=== PATIENT | male | born 1955 | race Caucasian/White ===

== ENCOUNTER 2017-06-26 17:00 | Outpatient (RCR) | payer OTHER, SELFPAY ==
--- NOTE | 2017-06-08 18:28 | HP.PTEVAL_ITS ---
Patient's Visit Information DEON MELENDEZ is a 62 year old M referred to Physical Therapy by Cristóbal Andujar with a diagnosis of BURSITIS LEFT AND RIGHT SHOULDER,OA LEFT SHOULDER. Date of Evaluation: 06/08/17 Physical Therapist: Tunde Castaneda PT, - Visit Plan Frequency: 2-3x /Week Duration: 4-6 Weeks Plan: RTC /SCAPULAR STRENGTHENING,POSTURAL EX'S ,POSTERIOR CAPSULAR STRETCHING, UE SCIFIT - Subjective Subjective: This 62 y/o male presents to physical therapy with bursitis bilateral and left shoulder ,and OA right shoulder. Patient noticed pain in shoulder since Nov had injections took pain away then in February had cortisone injection helped pain. Then 2weeks ago had 2nd injection left shoulder.Then recommended PT had x-rays -. Patient has pain located lateral deltoid ,bicep tendon region decribed as ache and weakness .Pain worse with overhead activities ,job demands ,lifting.Patient pain affects sleeping . Denies parathesia/tingling.Patient affects quality of life and job demands .Pain better with rest worse with activity and lifting. VOCATION: [employer] SOCAIL: . HOBBIES:running - Pain Bilateral Shoulder Pain Intensity (Out of 10): 7 Pain Intensity Range: 10 - Objective POSTURE: mild foward posture ,rounded shoulders. NEURO: denies parathesia/ tingling ,reflexes C5-6-7. PALPATION: unremarkable. AROM: flexion 160 degrees, abd 160 degrees ER 90 degrees ,IR 80 degrees. MMT: RTC 4/5 ,DELTOID 4-/5 mild pain with lateral deltoid,MT 3+/5,LT 3/5. BICEPS 4/5,TRICEPS 4/5. SCAPULAR HUMERAL FUNCTION: 1:1. CAPSULAR RESTRICTION: WFL - Special Tests R Shoulder External Rotation Lag Test - RC Tear: Negative R Shoulder Supine Impingement Test - RC Tear: Negative R Shoulder Lift Off Test - Subscapular Tear: Negative R Shoulder Empty Can - SS: Negative R Shoulder Neer - Impingement: Positive R Shoulder Quan Olman - Impingement: Positive R Shoulder Yeargasons - SLAP: Negative R Shoulder Speeds Test - Labrum/Biceps: Negative L Shoulder External Rotation Lag Test - RC Tear: Negative L Shoulder Lift Off Test - Subscapular Tear: Negative L Shoulder Empty Can - SS: Negative L Shoulder Neer - Impingement: Positive L Shoulder Quan Olman - Impingement: Positive - Goals Goal 1:: Independant with HEP Goal Time Frame: 4-6 Weeks Goal 2:: Independant with posture for ADL'S Goal Time Frame: 4-6 Weeks Goal 3:: Patient to decrease shoulder pain by 70% or greate to improve function with job demands and ADL'S Goal Time Frame: 4-6 Weeks Goal 4:: Patient be ble to perform ADL'S and overhead activities with job demands with min limitions Goal Time Frame: 4-6 Weeks Goal 5:: Patient to have no pain with deltoid strengtth to 4/5 and scapular 4-/ 5 to improve function. - Rehabilitation Potential Physical Therapy Diagnosis: This patient appears to have bilateral shoulder impingemnt bicep tendon/RTC with pain with job demnads and overhead activities Rehabilitation Potential: Good - Anticipated Interventions Patient/Client Instruction: Educate patient on: Condition, Plan of Care For the Purpose of:: To decrease pain, To increase ROM, To improve muscle performance and motor function, To improve ability to perform ADL's, To increase tolerance to activity/condition/position, To improve performance and independence with ADL's, To improve ability of physical actions for home/ community/work/leisure, To improve health of tissue, To decrease soft tissue restriction, To increase flexibility/ROM, To reduce risk of recurrence, To improve ability to perform tasks related to life management Therapeutic Exercise to Include: Strength training, Postural training, Flexibilty training, Scapular Strength/Stabilization Comment: RTC For the Purpose of:: To decrease pain, To increase ROM, To improve muscle performance and motor function, To increase tolerance to activity/condition/ position, To improve ability of physical actions for home/community/work/leisure , To improve health of tissue, To decrease soft tissue restriction, To increase flexibility/ROM, To reduce risk of recurrence, To improve ability to perform tasks related to life management IF ES: Yes Cryotherapy (ice pack, ice massage): Yes Thermo therapy (hot pack): Yes Ultrasound (thermal/non thermal): Yes For the Purpose of:: To decrease pain, To increase ROM, To improve nutrient delivery to tissue, To increase oxygenation perfusion, To improve health of tissue, To decrease soft tissue restriction Thank you for the opportunity to evaluate your patient. For Medicare and Medicare HMO plans, please review the plan of care and approve it. It will need to be FAXED BACK to us at [phone] for Medicare purposes. Please let me know if there are questions or concerns regarding this plan of care. Physician Signature: Date:
--- NOTE | 2017-10-06 17:01 | HP.PTDCNRP_ITS ---
HP - Discharge Summary (1) - Patient Information DEON MELENDEZ was seen in my office for initial evaluation on 06/08/17. The following Plan of Care was established for this patient: Initial Frequency: 2-3x /Week Initial Duration: 4-6 Weeks - Anticipated Interventions Patient/Client Instruction: Educate patient on: Condition, Plan of Care For the Purpose of:: To decrease pain, To increase ROM, To improve muscle performance and motor function, To improve ability to perform ADL's, To increase tolerance to activity/condition/position, To improve performance and independence with ADL's, To improve ability of physical actions for home/ community/work/leisure, To improve health of tissue, To decrease soft tissue restriction, To increase flexibility/ROM, To reduce risk of recurrence, To improve ability to perform tasks related to life management Therapeutic Exercise to Include: Strength training, Postural training, Flexibilty training, Scapular Strength/Stabilization For the Purpose of:: To decrease pain, To increase ROM, To improve muscle performance and motor function, To increase tolerance to activity/condition/ position, To improve ability of physical actions for home/community/work/leisure , To improve health of tissue, To decrease soft tissue restriction, To increase flexibility/ROM, To reduce risk of recurrence, To improve ability to perform tasks related to life management IF ES: Yes Cryotherapy (ice pack, ice massage): Yes Thermo therapy (hot pack): Yes Ultrasound (thermal/non thermal): Yes For the Purpose of:: To decrease pain, To increase ROM, To improve nutrient delivery to tissue, To increase oxygenation perfusion, To improve health of tissue, To decrease soft tissue restriction This patient was last seen in our office 06/26/17. Pertinent comments regarding their Physical therapy will appear below: Patient seen for PT for shoulder bursitus for PT intervention with modalties and attempred RTC and scap strengthening. Patient continued to have pain thus d/ c At this point I will be discontinuing this patient from physical therapy. I would be happy to see this patient again in the future if found appropriate by the physician. Thank you! Tunde Castaneda, PT,
== END 2017-06-26 19:00 | disposition home or self-care (01) ==
LOC: PT 17:00
PROVIDERS: Family Provider Family Medicine; PCP Family Medicine; Visit Provider Orthopaedic Surgery
DX: M75.51 Bursitis of right shoulder (principal); M75.52 Bursitis of left shoulder; M19.011 Primary osteoarthritis, right shoulder
CPT/HCPCS: 97014; 97035; 97110; 97162; G0283

== ENCOUNTER → 2018-03-20 16:49 | Outpatient (CLI) | payer OTHER, SELFPAY ==
[2018-03-20 17:15] LABS: Absolute Lymphocyte Count 2.52 X10^3/ul (0.83-4.51); Absolute Neutrophil Count 5.4 X10^3/uL (2.0-7.7); Basophil# 0.03 X10^3/uL; Basophil% 0.3 % (0-1); Eosinophil# 0.27 X10^3/uL; Hematocrit 44.7 % (40-54); Hemoglobin 14.6 g/dl (13.0-16.5); Lymphocyte # 2.52 X10^3/ul (4.0); Lymphocyte % 27.8 % (19-41); Mean Corp Hgb Conc 32.7 g/gl (32-36); Mean Corpuscular Hgb 28.5 pg (27.0-32.0); Mean Corpuscular Volume 87.1 fL (80-94); Monocyte% 8.8 % (0-10); Neutrophil # 5.42 X10^3/uL (2.7-7.7); Neutrophil % 59.9 % (47-70); POSITIVE COUNT NO; POSITIVE DIFFERENTIAL NO; POSITIVE MORPHOLOGY NO; Platelet Count 171 K/mm3 (150-450); RBC Distribution Width CV 14.4 % (11.6-14.6); RBC Distribution Width SD 45.7 fl (35.1-43.9); Red Blood Count 5.13 M/mm3 (4.6-6.2); White Blood Count 9.1 K/mm3 (4.4-11.0)
[2018-03-20 17:48] LABS: AST(SGOT) 41 U/L (15-37); Alanine Aminotransfer ALT/SGPT 54 U/L (16-61); Albumin, Serum 3.8 g/dL (3.2-5.0); Alkaline Phosphatase 71 U/L (45-117); Anion Gap 6 (5-15); BUN 30 mg/dL (7-18); Calcium,Total 8.8 mg/dL (8.5-10.1); Chloride 103 mmol/L (98-107); Cholesterol 195 mg/dL (200); EST Glomerular Filtration Rate 65 mL/min (>60); Est Glom Filt Rate - Afr Amer 79 mL/min (>60); Globulin 3.9 g/dL (2.2-4.2); Glucose 94 mg/dL (74-106); High Density Lipoprotein 43 mg/dL; PSA,Total - Annual Screen 2.94 ng/mL (0.00-4.00); Protein, Total 7.7 g/dL (6.4-8.2); Sodium Level 137 mmol/L (136-145); T4 Free Direct 1.05 ng/dL (0.76-1.46); Thyroid Stim Hormone (TSH) 4.79 uIU/mL (0.358-3.74); Triglycerides 185 mg/dL; Very Low Density Lipoprotein 37 mg/dL (5-40)
--- OUTSIDE RECORDS SUMMARY | 2018-05-22 23:02 | XMS RPT_ITS ---
:1955 Author Organization [facility] Care Team Providers Name Role Phone Cristóbal Andujar Attending Unavailable Rony Segura Primary Care Unavailable Cristóbal Andujar Attending Unavailable Cristóbal Andujar Referring Unavailable Rony Segura Primary Care Unavailable Rony Segura Primary Care Unavailable Kathrine Pineda Attending Unavailable Cristóbal Andujar Consulting Unavailable Rony Segura Attending Unavailable Rony Segura Primary Care Unavailable Rony Segura Referring Unavailable Cristóbal Andujar Consulting Unavailable PROBLEMS PROBLEMS DATE TYPE CONDITION / CODE ATTENDING STATUS SOURCE 09/21/2017 Unknown Z01.810 - Encounter Kathrine Pineda Active [facility] examination / Repository Z01.810(ICD-10) 10/10/2017 Unknown M75.51 - Bursitis of Cristóbal Andujar Active [facility] right shoulder / [facility] M75.51(ICD-10) Hospital Repository PROCEDURES PROCEDURES No Procedure Records FoundRESULTS RESULTS CBC W/DIFF, AUTOMATED Collected: 03/20/2018 Status: F Source: [place] 4:54 PM [facility] REPOSITORY TYPE CODE TESTS RESULT OUT OF RANGE REFERENCE UNITS LAB L100.1000 4.4-11.0 K/mm3 Normal WBC 9.1 LAB L100.1200 4.6-6.2 M/mm3 Normal RBC 5.13 LAB L100.1300 13.0-16.5 g/dl Normal HGB 14.6 LAB L100.1400 40-54 % Normal HCT 44.7 LAB L100.1500 80-94 fL Normal MCV 87.1 LAB L100.1600 27.0-32.0 pg Normal MCH 28.5 LAB L100.1700 32-36 g/gl Normal MCHC 32.7 LAB L100.1810 11.6-14.6 % Normal RDW CV 14.4 LAB L100.1820 35.1-43.9 fl High RDW SD 45.7 LAB L100.1900 150-450 K/mm3 Normal PLT 171 LAB L100.2000 6.2-12.0 fl Normal MPV 11.0 LAB L100.2100 47-70 % Normal NEUT% 59.9 LAB L100.2200 19-41 % Normal LY% 27.8 LAB L100.2300 0-10 % Normal MONO% 8.8 LAB L100.2400 0-5 % Normal EO% 3.0 LAB L100.2500 0-1 % Normal BASO% 0.3 LAB L100.2550 0.0-0.9 % Normal IM GRAN % 0.200 Result Comment: IG% - Immature Granulocytes (promyelocytes, myelocytes and metamyelocytes) > 1% indicates that a LEFT SHIFT is Present. LAB L100.2620 2.0-7.7 X10 3/uL Normal Absolute Neut 5.4 LAB L100.2720 0.83-4.51 X10 3/ul Normal Absolute Lymph 2.52 Performed By: #### L100.0100 #### [facility] [address], [address] COMPREHENSIVE METABOLIC Collected: 03/20/2018 Status: F Source: [place] 4:54 PM [facility] REPOSITORY TYPE CODE TESTS RESULT OUT OF RANGE REFERENCE UNITS LAB L501.0100 74-106 mg/dL Normal GLU 94 Result Comment: Please note revised GLUCOSE reference range effective 2017. LAB L501.1000 7-18 mg/dL High BUN 30 LAB L501.1100 0.70-1.30 mg/dL Normal CREAT,SERUM 1.20 Result Comment: The validity of the calculated GFR AND GFRAA in patients over 70 years has not been determined. Clinical correlation is essential. LAB L501.1110 >60 mL/min Normal EST GFR 65 Result Comment: Non- GFR Calc LAB L501.1115 >60 mL/min Normal EST GFR - AA 79 Result Comment: GFR Calc LAB L501.1300 10-20 RATIO High BUN/CRE 25.0 LAB L501.1500 6.4-8.2 g/dL T Normal PROT 7.7 LAB L501.1800 3.2-5.0 g/dL Normal ALB 3.8 LAB L501.1950 2.2-4.2 g/dL Normal GLOB 3.9 LAB L501.2000 0.9-2.4 RATIO Normal A/G 1.0 LAB L501.2200 8.5-10.1 mg/dL CA Normal 8.8 LAB L501.4100 15-37 U/L High AST 41 LAB L501.4305 45-117 U/L Normal ALK P 71 LAB L501.4405 16-61 U/L Normal ALT 54 LAB L501.4600 0.20-1.00 mg/dL T Normal BILI 0.30 LAB L501.5300 136-145 mmol/L NA Normal 137 LAB L501.5600 3.5-5.1 mmol/L K Normal 4.0 LAB L501.5900 98-107 mmol/L CL Normal 103 LAB L501.6100 21.0-32.0 mmol/L Normal CO2 28.0 LAB L501.6200 5-15 Normal GAP 6 Performed By: #### L500.4050, L500.4100, L501.9520, L501.9910, L506.0400 #### [facility] [address] [place], [address] LIPID PROFILE Collected: 03/20/2018 Status: F Source: [place] 4:54 PM [facility] REPOSITORY TYPE CODE TESTS RESULT OUT OF RANGE REFERENCE UNITS LAB L501.4900 200 mg/dL Normal CHOL 195 Result Comment: <200 mg/dL Desirable 200-240 mg/dL Borderline >240 mg/dL High Risk LAB L501.5000 mg/dL Normal TRIG 185 Result Comment: The drugs N-Acetylcysteine and Metamizole may falsely depress this assay. Serum Triglycerides Reference Interval Normal <150 mg/dL Borderline high 150 - 199 mg/dL High 200 - 499 mg/dL Very High > or = 500 mg/dL LAB L501.6400 mg/dL Normal HDL 43 Result Comment: The drugs N-Acetylcysteine and Metamizole may falsely depress this assay. Reference Range HDL <40 mg/dL Low HDL Cholesterol HDL >or= 60 mg/dL High HDL Cholesterol LAB L501.6500 0-130 mg/dL Normal LDL 115 LAB L501.6600 5-40 mg/dL Normal VLDL 37 Performed By: #### L500.4050, L500.4100, L501.9520, L501.9910, L506.0400 #### [facility] [address] [facility]. [place], [place], [address] THYROID STIM HORMONE Collected: 03/20/2018 Status: F Source: [place] ([place]) 4:54 PM [facility] REPOSITORY TYPE CODE TESTS RESULT OUT OF RANGE REFERENCE UNITS LAB L501.9520 0.358-3.74 uIU/mL High TSH 4.79 Performed By: #### L500.4050, L500.4100, L501.9520, L501.9910, L506.0400 #### [facility] [address] [facility] [place], [address] PSA,TOTAL - ANNUAL Collected: 03/20/2018 Status: F Source: [place] SCREEN 4:54 PM [facility] REPOSITORY TYPE CODE TESTS RESULT OUT OF RANGE REFERENCE UNITS LAB L501.9910 0.00-4.00 ng/mL Normal PSA,TOT 2.94 SCREEN Result Comment: This test was performed using the TPSA assay method for the opvizor chemistry system. Values obtained with different assay methods cannot be used interchangably. When changing PSA assays in the course of monitoring a patient, additional sequential testing should be carried out to confirm baseline values. Performed By: #### L500.4050, L500.4100, L501.9520, L501.9910, L506.0400 #### [facility] [address] [place], [address] T4 FREE DIRECT Collected: 03/20/2018 Status: F Source: [place] 4:54 PM [facility] REPOSITORY TYPE CODE TESTS RESULT OUT OF RANGE REFERENCE UNITS LAB L506.0400 0.76-1.46 ng/dL Normal T4 FREE 1.05 DIRECT Performed By: #### L500.4050, L500.4100, L501.9520, L501.9910, L506.0400 #### [facility] [address] [place], [address] INITAL EVALUATION (1) Observed: 06/08/2017 Status: F Source: [place] - PT 6:44 PM [facility] REPOSITORY [facility] [address] [place] [address]. [address] [place] [address] Fax REHABILITATION SERVICES INITIAL EVALUATION MR#: [id number] Acct: [id number] Name: DEON MELENDEZ Rep #: [id number] : 1955 62 From: Tunde Castaneda PT, Cert. MDT, OCS Referring Dr.: Cristóbal Andujar MD Status: REG R Insurance: [facility] SELF PAY INSURANCE Patient's Visit Information DEON MELENDEZ is a 62 year old M referred to Physical Therapy by Cristóbal Andujar with a diagnosis of BURSITIS LEFT AND RIGHT SHOULDER,OA LEFT SHOULDER. Date of Evaluation: 06/08/17 Physical Therapist: Tunde Castaneda PT, - Visit Plan Frequency: 2-3x /Week Duration: 4-6 Weeks Plan: RTC /SCAPULAR STRENGTHENING,POSTURAL EX'S ,POSTERIOR CAPSULAR STRETCHING,UE SCIFIT - Subjective Subjective: This 62 y/o male presents to physical therapy with bursitis bilateral and left shoulder ,and OA right shoulder. Patient noticed pain in shoulder since Nov had injections took pain away then in February had cortisone injection helped pain. Then 2weeks ago had 2nd injection left shoulder.Then recommended PT had x-rays -. Patient has pain located lateral deltoid ,bicep tendon region decribed as ache and weakness .Pain worse with overhead activities ,job demands ,lifting.Patient pain affects sleeping . Denies parathesia/tingling.Patient affects quality of life and job demands .Pain better with rest worse with activity and lifting. VOCATION: [employer] SOCAIL: . HOBBIES:running - Pain Bilateral Shoulder Pain Intensity (Out of 10): 7 Pain Intensity Range: 10 - Objective POSTURE: mild foward posture ,rounded shoulders. NEURO: denies parathesia/tingling ,reflexes C5-6-7. PALPATION: unremarkable. AROM: flexion 160 degrees,abd 160 degrees ER 90 degrees ,IR 80 degrees. MMT: RTC 4/5 ,DELTOID 4-/5 mild pain with lateral deltoid,MT 3+/5,LT 3/5. BICEPS 4/5,TRICEPS 4/5. SCAPULAR HUMERAL FUNCTION: 1:1. CAPSULAR RESTRICTION: WFL - Special Tests R Shoulder External Rotation Lag Test - RC Tear: Negative R Shoulder Supine Impingement Test - RC Tear: Negative R Shoulder Lift Off Test - Subscapular Tear: Negative R Shoulder Empty Can - SS: Negative R Shoulder Neer - Impingement: Positive R Shoulder Quan Olman - Impingement: Positive R Shoulder Yeargasons - SLAP: Negative R Shoulder Speeds Test - Labrum/Biceps: Negative L Shoulder External Rotation Lag Test - RC Tear: Negative L Shoulder Lift Off Test - Subscapular Tear: Negative L Shoulder Empty Can - SS: Negative L Shoulder Neer - Impingement: Positive L Shoulder Quan Olman - Impingement: Positive - Goals Goal 1:: Independant with HEP Goal Time Frame: 4-6 Weeks Goal 2:: Independant with posture for ADL'S Goal Time Frame: 4-6 Weeks Goal 3:: Patient to decrease shoulder pain by 70% or greate to improve function with job demands and ADL'S Goal Time Frame: 4-6 Weeks Goal 4:: Patient be ble to perform ADL'S and overhead activities with job demands with min limitions Goal Time Frame: 4-6 Weeks Goal 5:: Patient to have no pain with deltoid strengtth to 4/5 and scapular 4-/5 to improve function. - Rehabilitation Potential Physical Therapy Diagnosis: This patient appears to have bilateral shoulder impingemnt bicep tendon/RTC with pain with job demnads and overhead activities Rehabilitation Potential: Good - Anticipated Interventions Patient/Client Instruction: Educate patient on: Condition, Plan of Care For the Purpose of:: To decrease pain, To increase ROM, To improve muscle performance and motor function, To improve ability to perform ADL's, To increase tolerance to activity/condition/position, To improve performance and independence with ADL's, To improve ability of physical actions for home/community/work/leisure, To improve health of tissue, To decrease soft tissue restriction, To increase flexibility/ROM, To reduce risk of recurrence, To improve ability to perform tasks related to life management Therapeutic Exercise to Include: Strength training, Postural training, Flexibilty training, Scapular Strength/Stabilization Comment: RTC For the Purpose of:: To decrease pain, To increase ROM, To improve muscle performance and motor function, To increase tolerance to activity/condition/position, To improve ability of physical actions for home/community/work/leisure, To improve health of tissue, To decrease soft tissue restriction, To increase flexibility/ROM, To reduce risk of recurrence, To improve ability to perform tasks related to life management IF ES: Yes Cryotherapy (ice pack, ice massage): Yes Thermo therapy (hot pack): Yes Ultrasound (thermal/non thermal): Yes For the Purpose of:: To decrease pain, To increase ROM, To improve nutrient delivery to tissue, To increase oxygenation perfusion, To improve health of tissue, To decrease soft tissue restriction Thank you for the opportunity to evaluate your patient. For Medicare and Medicare HMO plans, please review the plan of care and approve it. It will need to be FAXED BACK to us at [phone] for Medicare purposes. Please let me know if there are questions or concerns regarding this plan of care. Physician Signature: Date: <Electronically signed by Tunde Castaneda PT, Cert. T, OCS> 06/08/17 [id number] CC: Rony Segura DO; Cristóbal Andujar MD JAVED Signed For Medicare only, by signing this I certify the plan of care. Physicians Signature Date ALLERGIES ALLERGIES No Allergies Records FoundENCOUNTERS ENCOUNTERS ADMIT/DISCHARGE ACCOUNT ADMITTING ENCOUNTER LOCATION SOURCE NUMBER CLASS 03/21/2018 [id number] Ambulatory [place] [facility] [facility] ing:LAB.FUTUR Repository E 03/20/2018 [id number] [place] [facility] ing:LAB.FUTUR Repository E 09/21/2017 [id number] Ambulatory [place] [facility] ing:[facility] Repository 06/26/2017/ [id number] Ambulatory [place] [address] [facility] ing:PT Repository PAYERS PAYERS ENCOUNTER GUARANTOR PAYER SUBSCRIBER SOURCE 03/21/2018 DEON العراقي Primary DEON M [place] [id number] [place] Insurance:MEDICAL RYANDOB: [facility] [id number] [address]Tel: (330) Number: Repository [phone] () [id number] Date:9354[place]-68[place] [id number]: 03/21/2018 Secondary NOT GIVENUNK [place] Insurance:SELF PAY [facility] Number: Effective Repository Date:2018-03-21 03/20/2018 DEON العراقي Primary DEON M [place] [id number] [place] Insurance:MEDICAL RYANDOB: [facility] [id number] [address]Rzw: [phone]) Number: Repository [phone] () [id number] Date:8567-22-[place] [id number]: 03/20/2018 Secondary NOT GIVENUNK [place] Insurance:SELF PAY [facility] Number: Effective Repository Date:2017-12-20 09/21/2017 DEON العراقي Primary DEON [place] [id number] [place] Insurance:MEDICAL RYANDOB: [facility] [id number] [facility] [address]Mxq: (330) Number: Repository [phone] () [id number] Date:[id number] [address]GV: 09/21/2017 Secondary NOT GIVENUNK [place] Insurance:SELF PAY [facility] Number: Effective Repository Date:2017-09-21 06/26/2017 DEON العراقي Primary DEON Hickman [id number] [place] Insurance:MEDICAL RYANDOB: [facility] [id number] [address]Dfl: (330) Number: Repository [phone] () [id number] Date:[id number] [address]GD: 06/26/2017 Secondary NOT GIVENUNK [place] Insurance:SELF PAY [facility] Number: Effective Repository Date:2017-05-30
== END ==
PROVIDERS: Family Provider Family Medicine; PCP Family Medicine; Referring Provider Family Medicine; Visit Provider Family Medicine
DX: Z00.00 Encounter for general adult medical examination without abnormal findings (principal); E03.9 Hypothyroidism, unspecified; Z12.5 Encounter for screening for malignant neoplasm of prostate
CPT/HCPCS: 36415; 80053; 80061; 84153; 84439; 84443; 85025; G0103

== ENCOUNTER → 2018-05-29 16:34 | Outpatient (CLI) | payer OTHER, SELFPAY ==
[2018-05-29 17:45] LABS: Erythrocyte Sedimentation Rate 4 mm/hr (0-20)
[2018-05-29 17:53] LABS: Vitamin B12 868 pg/mL (211-911)
[2018-05-29 17:58] LABS: ALB/GLOB Ratio 1.1 RATIO (0.9-2.4); AST(SGOT) 23 U/L (15-37); Alanine Aminotransfer ALT/SGPT 29 U/L (16-61); Albumin, Serum 3.8 g/dL (3.2-5.0); Alkaline Phosphatase 62 U/L (45-117); Anion Gap 6 (5-15); BUN 17 mg/dL (7-18); BUN/Creat Ratio 14.9 RATIO (10-20); CRP 3.34 mg/L (0.0-3.0); Calcium,Total 8.7 mg/dL (8.5-10.1); Chloride 110 mmol/L (98-107); Creatinine, Serum 1.14 mg/dL (0.70-1.30); EST Glomerular Filtration Rate 69 mL/min (>60); Est Glom Filt Rate - Afr Amer 84 mL/min (>60); Globulin 3.5 g/dL (2.2-4.2); Glucose 91 mg/dL (74-106); Potassium 4.1 mmol/L (3.5-5.1); Protein, Total 7.3 g/dL (6.4-8.2); Sodium Level 141 mmol/L (136-145); Thyroid Stim Hormone (TSH) 0.63 uIU/mL (0.358-3.74)
== END ==
PROVIDERS: Family Provider Family Medicine; PCP Family Medicine; Referring Provider Psychiatry & Neurology Neurology; Visit Provider Psychiatry & Neurology Neurology
DX: R41.3 Other amnesia (principal)
CPT/HCPCS: 36415; 80053; 82140; 82607; 84443; 85652; 86140

== ENCOUNTER → 2018-06-05 16:44 | Outpatient (CLI) | payer OTHER, SELFPAY ==
--- NOTE | 2018-06-05 17:30 | MRI_ITS ---
STUDY: MRI BRAIN WITH AND WITHOUT CONTRAST REASON FOR EXAM: Male, 63 years old. Short-term memory loss x2 years. TECHNIQUE: Standardized multiplanar fat and water weighted pulse sequences were obtained. 19 IV Dotarem was administered for the contrast portion of the examination. COMPARISON: None. FINDINGS: No restricted diffusion to suspect acute or subacute ischemic infarct. Normal size of the ventricles and extra-axial spaces for the patient's age. Subcortical white matter T2 FLAIR hyperintensity foci in the right cerebral hemisphere. No mass effects. No midline shift. No contrast enhancing lesions extra-axially and intraaxially. Normal bilateral basal ganglia. Normal thalami. There is no extra-axial fluid accumulation. Normal flow voids within the major intracranial circulation suggesting patency by spin echo criteria. Normal venous enhancement. There is no enhancing intra-axial or extra-axial abnormality. Normal sella turcica, pituitary gland, infundibular stalk, optic chiasm and hypothalamus. Normal tectal plate and pineal gland. Normal midbrain, chiquita and medulla. Normal cerebellum. Normal basal cisterns. Normal bilateral temporal bones. Normal bilateral internal auditory canals. No demonstrated orbital abnormality, within the constraints of a routine brain study. Normal visualized paranasal sinuses. Normal calvarium and skull base. Normal visualized soft tissue structures. Normal visualized upper cervical spine. MRI/Brain W/WO Contrast IMPRESSION: 1. No MRI evidence of acute or subacute ischemic infarcts. 2. No MRI evidence of remote cortical-based ischemic infarcts or lacunar ischemic infarcts. 3. Few chronic subcortical white matter ischemic changes in the right cerebral hemisphere. 4. No enhancing lesions extra-axially and intraaxially. Electronically Signed: Gurvinder He MD at 16:12 EDT , Service support ,
== END ==
PROVIDERS: Family Provider Family Medicine; PCP Family Medicine; Referring Provider Psychiatry & Neurology Neurology; Visit Provider Psychiatry & Neurology Neurology
DX: R41.0 Disorientation, unspecified (principal)
CPT/HCPCS: 70553; A9575

== ENCOUNTER → 2018-08-16 15:56 | Outpatient (CLI) | payer OTHER, SELFPAY ==
[2018-08-16 17:25] LABS: Hematocrit 42.9 % (40-54); Hemoglobin 14.4 g/dl (13.0-16.5); Mean Corp Hgb Conc 33.6 g/gl (32-36); Mean Corpuscular Hgb 27.9 pg (27.0-32.0); Mean Platelet Vol. 11.7 fl (6.2-12.0); Platelet Count 156 K/mm3 (150-450); RBC Distribution Width CV 14.3 % (11.6-14.6); RBC Distribution Width SD 42.8 fl (35.1-43.9); Red Blood Count 5.17 M/mm3 (4.6-6.2)
[2018-08-16 17:26] LABS: Scan Indicated on CBC? Y/N NO
[2018-08-16 17:39] LABS: Anion Gap 6 (5-15); BUN 15 mg/dL (7-18); Calcium,Total 9.1 mg/dL (8.5-10.1); Chloride 106 mmol/L (98-107); Creatinine, Serum 1.07 mg/dL (0.70-1.30); EST Glomerular Filtration Rate 74 mL/min (>60); Est Glom Filt Rate - Afr Amer 90 mL/min (>60); Glucose 88 mg/dL (74-106); Sodium Level 139 mmol/L (136-145)
== END ==
PROVIDERS: Family Provider Family Medicine; PCP Family Medicine; Visit Provider Physician Assistant Surgical
DX: Z01.818 Encounter for other preprocedural examination (principal)
CPT/HCPCS: 36415; 80048; 85027

== ENCOUNTER → 2019-12-03 15:36 | Outpatient (CLI) | payer OTHER, SELFPAY ==
--- NOTE | 2019-12-03 15:41 | RAD_ITS ---
STUDY: X-RAY - PELVIS AND RIGHT HIP REASON FOR EXAM: Right posterior hip and groin pain. TECHNIQUE: 2 views of the pelvis and hip. COMPARISON: None. FINDINGS: There is a small calcification adjacent to the right greater trochanter suggestive of calcific tendinitis. There is mild joint space narrowing and subchondral sclerosis of the sacroiliac joints bilaterally. Normal bilateral iliac wings and visualized sacrum. Normal bilateral superior and inferior pubic rami. There are degenerative changes of the pubic symphysis. Normal bilateral ischial tuberosities. Normal visualized femoral head. Normal acetabulum. Normal right hip joint with incidental vacuum phenomenon on the frog-leg view. RAD/HIP, UNI W/ Pelvis 2-3 Views IMPRESSION: Calcific tendinitis adjacent to the right greater trochanter. Degenerative changes of the pubic symphysis and bilateral sacroiliac joints. Electronically Signed: Maurisio Coleman MD at 10:08 EDT Tel , Service support ,
== END ==
PROVIDERS: PCP Family Medicine; Referring Provider Family Medicine; Visit Provider Family Medicine
DX: M25.551 Pain in right hip (principal)
CPT/HCPCS: 73502

== ENCOUNTER → 2021-10-21 | Outpatient (CLI) | payer OTHER, SELFPAY ==
[2021-10-21 10:21] LABS: Absolute Lymphocyte Count 1.71 X10^3/uL (0.83-4.51); Absolute Neutrophil Count 2.9 X10^3/uL (2.0-7.7); Basophil# 0.04 X10^3/uL; Basophil% 0.7 % (0-1); Eosinophil# 0.25 X10^3/uL; Eosinophils% 4.5 % (0-5); Hemoglobin 14.5 g/dL (13.0-16.5); Lymphocyte # 1.71 X10^3/ul (0.83-4.51); Lymphocyte % 30.8 % (19-41); Mean Corpuscular Hgb 28.5 pg (27.0-32.0); Mean Corpuscular Volume 86.4 fL (80-94); Mean Platelet Vol. 11.7 fl (6.2-12.0); Monocyte# 0.62 X10^3/uL; Monocyte% 11.2 % (0-10); NRBC Flagged by Analyzer 0 % (0-5); Neutrophil # 2.92 X10^3/uL (2.7-7.7); Neutrophil % 52.6 % (47-70); Platelet Count 159 K/mm3 (150-450); RBC Distribution Width CV 13.6 % (11.6-14.6); RBC Distribution Width SD 43.4 fl (35.1-43.9); Red Blood Count 5.09 M/mm3 (4.6-6.2); White Blood Count 5.6 K/mm3 (4.4-11.0)
[2021-10-21 10:42] LABS: Vitamin B12 815 pg/mL (211-911)
[2021-10-21 11:09] LABS: ALB/GLOB Ratio 1.1 RATIO (0.9-2.4); AST(SGOT) 27 U/L (15-37); Alanine Aminotransfer ALT/SGPT 32 U/L (16-61); Albumin, Serum 3.7 g/dL (3.2-5.0); Alkaline Phosphatase 72 U/L (45-117); Anion Gap 5 (5-15); BUN 13 mg/dL (7-18); BUN/Creat Ratio 12.4 RATIO (10-20); Calcium,Total 9.4 mg/dL (8.5-10.1); Chloride 106 mmol/L (98-107); Cholesterol 145 mg/dL (200); Creatinine, Serum 1.05 mg/dL (0.70-1.30); EST Glomerular Filtration Rate 75 mL/min (>60); Est Glom Filt Rate - Afr Amer 91 mL/min (>60); Globulin 3.5 g/dL (2.2-4.2); Glucose 89 mg/dL (74-106); High Density Lipoprotein 43 mg/dL; Potassium 4.1 mmol/L (3.5-5.1); Protein, Total 7.2 g/dL (6.4-8.2); Sodium Level 140 mmol/L (136-145); Thyroid Stim Hormone (TSH) 0.03 uIU/mL (0.358-3.74); Triglycerides 60 mg/dL; Very Low Density Lipoprotein 12 mg/dL (5-40)
== END | disposition home or self-care (01) ==
LOC: MTLAB 08:02
PROVIDERS: PCP Family Medicine; Referring Provider Family Medicine; Visit Provider Family Medicine
DX: E78.5 Hyperlipidemia, unspecified (principal); E03.9 Hypothyroidism, unspecified; R41.3 Other amnesia; I10 Essential (primary) hypertension; Z12.5 Encounter for screening for malignant neoplasm of prostate
CPT/HCPCS: 36415; 80053; 80061; 82607; 84153; 84443; 85025; G0103

== ENCOUNTER → 2022-04-27 | Outpatient (CLI) | payer OTHER, SELFPAY ==
--- NOTE | 2022-04-27 06:37 | MRI_ITS ---
HISTORY: Mild cognitive impairment, memory issues. TECHNIQUE: Multiplanar and multisequence MR images of the brain were obtained before and after the intravenous administration of 16 mL Clariscan. 341 images. COMPARISON: 06/05/2018. FINDINGS: BRAIN PARENCHYMA: No enhancing lesion in the brain parenchyma. Small foci and small zones of increased T2 FLAIR signal in the bilateral cerebral white matter again seen. No abnormal focus of restricted diffusion. No acute intracranial hemorrhage identified. CSF SPACES: Chronic generalized volume loss. No significant midline shift or other mass effect.No extra-axial fluid collection. VASCULAR SYSTEM: Major intracranial flow voids are maintained. PARANASAL SINUSES AND MASTOID AIR CELLS: No significant air fluid levels. ORBITS: Symmetric contents. MRI/Brain W/WO Contrast IMPRESSION: No evidence for enhancing intracranial mass, acute infarct, or other acute abnormality. Chronic involutional and white matter changes, similar to prior. Electronically Signed: Gogo Manuel MD at 8:44 EST ,
[2022-04-27 07:15] LABS: CREATININE FINGERSTICK < 0.9 mg/dL (0.70-1.30); EGFR FINGERSTICK > 60.0000 mL/min (>60)
[2022-04-27 08:38] LABS: Hematocrit 45.1 % (40-54); Hemoglobin 14.9 g/dL (13.0-16.5); Mean Corpuscular Hgb 28.6 pg (27.0-32.0); Mean Corpuscular Volume 86.6 fL (80-94); Mean Platelet Vol. 10.7 fl (6.2-12.0); Platelet Count 203 K/mm3 (150-450); RBC Distribution Width CV 13.3 % (11.6-14.6); RBC Distribution Width SD 41.9 fl (35.1-43.9); Red Blood Count 5.21 M/mm3 (4.6-6.2); White Blood Count 6.9 K/mm3 (4.4-11.0)
[2022-04-27 09:08] LABS: Vitamin B12 929 pg/mL (211-911)
[2022-04-27 09:17] LABS: ALB/GLOB Ratio 1.1 RATIO (0.9-2.4); AST(SGOT) 33 U/L (15-37); Alanine Aminotransfer ALT/SGPT 62 U/L (16-61); Albumin, Serum 3.7 g/dL (3.2-5.0); Alkaline Phosphatase 106 U/L (45-117); Anion Gap 6 (5-15); BUN 20 mg/dL (7-18); BUN/Creat Ratio 19.2 RATIO (10-20); Calcium,Total 9.1 mg/dL (8.5-10.1); Chloride 104 mmol/L (98-107); Creatinine, Serum 1.04 mg/dL (0.70-1.30); EST Glomerular Filtration Rate 76 mL/min (>60); Est Glom Filt Rate - Afr Amer 92 mL/min (>60); Globulin 3.4 g/dL (2.2-4.2); Glucose 82 mg/dL (74-106); Potassium 4.1 mmol/L (3.5-5.1); Protein, Total 7.1 g/dL (6.4-8.2); Sodium Level 137 mmol/L (136-145); T4 Free Direct 1.15 ng/dL (0.76-1.46); Thyroid Stim Hormone (TSH) 1.13 uIU/mL (0.358-3.74)
[2022-05-01 14:01] LABS: Arsenic 7245 9 ug/L (0-9); Lead, Blood 1.3 ug/dL (0.0-3.4); Mercury, Blood 85324 < 1.0 ug/L (0.0-14.9); Vitamin B1, Thiamine 162.8 nmol/L (66.5-200.0)
== END | disposition home or self-care (01) ==
PROVIDERS: PCP Family Medicine; Referring Provider Psychiatry & Neurology Neurology; Visit Provider Psychiatry & Neurology Neurology
DX: G31.84 Mild cognitive impairment of uncertain or unknown etiology (principal)
CPT/HCPCS: 36415; 70553; 80053; 82175; 82607; 82746; 83655; 83825; 84425; 84439; 84443; 85027; A9575

== ENCOUNTER → 2022-05-04 | Outpatient (CLI) | payer OTHER, SELFPAY | END | disposition home or self-care (01) | PROVIDERS: PCP Family Medicine; Referring Provider Psychiatry & Neurology Neurology; Visit Provider Psychiatry & Neurology Neurology | DX: G47.10 Hypersomnia, unspecified (principal) | CPT/HCPCS: 95806 ==

== ENCOUNTER → 2024-03-06 | Outpatient (CLI) | payer OTHER, SELFPAY ==
--- NOTE | 2024-03-06 06:40 | EKG12_ITS ---
Test Reason : PREOP Blood Pressure : */* mmHG Vent. Rate : 54 BPM Atrial Rate : 54 BPM P-R Int : 198 ms QRS Dur : 110 ms QT Int : 450 ms P-R-T Axes : 31 1 18 degrees QTcB Int : 426 ms Sinus bradycardia Otherwise normal ECG Confirmed by Rodrigue Taylor ([id number]), acquisition editor ADEBAYO DAVID ([id number]) on 03/06/2024 9:28:16 AM Referred By: Kathrine Pineda Confirmed By: Rodrigue Taylor
[2024-03-06 07:42] LABS: Hematocrit 45.8 % (40-54); Hemoglobin 15.2 g/dL (13.0-16.5); Mean Corp Hgb Conc 33.2 g/dL (32-36); Mean Corpuscular Hgb 28.6 pg (27.0-32.0); Mean Corpuscular Volume 86.1 fL (80-94); Mean Platelet Vol. 11.2 fl (6.2-12.0); Platelet Count 176 K/mm3 (150-450); RBC Distribution Width CV 13.5 % (11.6-14.6); RBC Distribution Width SD 42.1 fl (35.1-43.9); Red Blood Count 5.32 M/mm3 (4.6-6.2); White Blood Count 6.5 K/mm3 (4.4-11.0)
[2024-03-06 07:48] LABS: Anion Gap 4 (5-15); BUN 21 mg/dL (7-18); BUN/Creat Ratio 17.1 RATIO (10-20); Calcium,Total 9.6 mg/dL (8.5-10.1); Chloride 106 mmol/L (98-107); Creatinine, Serum 1.23 mg/dL (0.70-1.30); EST Glomerular Filtration Rate 62 mL/min (>60); Est Glom Filt Rate - Afr Amer 75 mL/min (>60); Glucose 98 mg/dL (74-106); Potassium 4.1 mmol/L (3.5-5.1); Sodium Level 140 mmol/L (136-145)
== END | disposition home or self-care (01) ==
PROVIDERS: PCP Family Medicine; Referring Provider Physician Assistant; Visit Provider Physician Assistant
DX: Z01.818 Encounter for other preprocedural examination (principal); Z01.810 Encounter for preprocedural cardiovascular examination
CPT/HCPCS: 36415; 80048; 85027; 93005

== ENCOUNTER 2024-06-28 08:38 | Day surgery (SDC) | payer OTHER, SELFPAY ==
[2024-06-26 08:45] VITALS: BMI 27.3
[2024-06-28] VITALS (9 sets, daily range): BP systolic 106–173; BP diastolic 74–89; PULSE 50–66; RESP 16–18; TEMP 36.1–36.3; O2SAT 92–100; BMI 28.5
[2024-06-28] MEDS: Lactated Ringers 1,000 ML 15 ML IV (08:55)
--- NOTE | 2024-06-28 09:26 | PCM.PRE.AN2 ---
ASA Classification* ASA Classification ASA Classification: 2 Assessment & Plan Anesthesia* Anesthesia Assessment Anesthesia Assessment: Discussed sedation and/or anesthesia options, risks, benefits, and alternatives with patient/parents/legal guardian/POA. Questions invited. The patient/parents/legal guardian/POA seems to understand and agrees to proceed with anesthesia plan. Reviewed the physical assessment, medical history, allergy history and patient home medications list prior to surgery/procedure/anesthetic and documented any changes. Performed airway and anesthesia risk assessments. Anesthesia Type Anesthesia Type: MAC Anesthesia Focused Assessment* Temperature: 97.4 F Pulse Rate: 66 Blood Pressure: 173/89 Respiratory Rate: 18 Pulse Ox: 100 Airway Assessment Mouth opens: >3 cm Mallampati Score: II Focused Labs Anesthesia Preop lab: CBC WBC 6.5 K/mm3 (4.4-11.0) 03/06/24 06:41 03/06/24 RBC 5.32 M/mm3 (4.6-6.2) 03/06/24 06:41 03/06/24 Hgb 15.2 g/dL (13.0-16.5) 03/06/24 06:41 03/06/24 Hct 45.8 % (40-54) 03/06/24 06:41 03/06/24 Plt Count 176 K/mm3 (150-450) 03/06/24 06:41 03/06/24 CHEMISTRY Potassium 4.1 mmol/L (3.5-5.1) 03/06/24 06:41 03/06/24 Sodium 140 mmol/L (136-145) 03/06/24 06:41 03/06/24 BUN 21 mg/dL (7-18) H 03/06/24 06:41 03/06/24 Creatinine 1.23 mg/dL (0.70-1.30) 03/06/24 06:41 03/06/24 Glucose 98 mg/dL (74-106) 03/06/24 06:41 03/06/24 TSH 1.13 uIU/mL (0.358-3.74) 04/27/22 07:46 04/27/22 COAG Pre-Assessment Diagnosis/Proposed Procedure Planned Operative Procedure(s): COLONOSCOPY-OA Anesthesia History Anesthesia History - dry primer powder blender: Anesthesia History - dry primer powder blender Hx Hospitalization No 06/26/24 08:45 Any Problems With Anesthesia No 06/26/24 08:45 Cholinesterase deficiency No 06/26/24 08:45 You/Your Family Experience No 06/26/24 08:45 fever (hyperthermia) with Relationship Recent Exposure to Contagious No 06/28/24 08:51 Disease Does patient have nerve No 06/26/24 08:45 stimulator Patient instructed to have device shut off --Does patient have Pacemaker No 06/28/24 08:52 or ICD? When Was Last Pacemaker Check QUESTION #4 FULL TEXT: You/Your Family Experience fever (hyperthermia) with Anesthesia Last Oral Intake Last Oral intake: Last Oral Intake NPO since 05:35 06/28/24 08:52 Meds taken in AM with sips of water? Meds patient instructed to take am of surgery PONV PONV - dry primer powder blender: PONV - dry primer powder blender Female No 06/26/24 08:45 HX of Motion Sickness No 06/26/24 08:45 HX of N/V After Surgery No 06/26/24 08:45 Non-Smoker Yes 06/26/24 08:45 Duration of Surgery greater No 06/26/24 08:45 than 60 minutes Number of Risk Factors 1 06/26/24 08:45 PONV Score Low Risk 06/26/24 08:45 Height & Weight Height & Weight: Anesthesia: Height & Weight Height 5 ft 10 in 06/28/24 08:52 Weight: 90.265 kg 06/28/24 08:52 Body Mass Index (BMI) 28.5 06/28/24 08:52 Respiratory Assessment Respiratory Assessment - dry primer powder blender: Respiratory Tract Infection Hx - dry primer powder blender Hx Respiratory Tract Infection No 06/26/24 08:45 STOP Sleep Apnea STOP Sleep Apnea - dry primer powder blender: STOP Sleep Apnea - dry primer powder blender Hx Hypertension No 06/26/24 08:45 Hx Sleep Apnea No 06/26/24 08:45 CPAP BIPAP Do you snore loudly (louder No 06/26/24 08:45 than talking or can be heard Do you often feel tired/ No 06/26/24 08:45 fatigued/ sleepy during daytime? Has anyone observed you stop No 06/26/24 08:45 breathing during sleep? STOP Results Negative 06/26/24 08:45 QUESTION #5 FULL TEXT : Do you snore loudly (louder than talking or can be heard through closed doors)? Tobacco Use History Tobacco Use History - dry primer powder blender: Tobacco Use History - dry primer powder blender Tobacco Use Smoking Status Never smoker 06/26/24 08:45 Hx Tobacco Use No 06/26/24 08:45 Years Smoking Packs Smoked per Day Smoking Cessation Date was within the last 15 years Hx Smoking Cessation Date Hx Smoking Cessation Counseling Hematologic Medial History Hematologic Hx - dry primer powder blender: Hematologic Medical Hx - chicken boner Hx of Blood Transfusion No 06/26/24 08:45 Hx of Transfusion in last 3 No 06/26/24 08:45 Months Date of Last Transfusion (if within last 3 months) Ever experience any problems No 06/26/24 08:45 with transfusion(s)? Specify any problems Hx of Preganancy in last 3 N/A 06/26/24 08:45 Months Nurse Filling Out Transfusion VCHRISTIN 06/26/24 08:45 & Questions: Date: 06/26/24 06/26/24 08:45 Time: 08:46 06/26/24 08:45 Patient unable to answer at this time (ie. confused, unrespo /Reproduction History /Reproductive History - dry primer powder blender: /Reproductive Hx- dry primer powder blender Hx Now Gestational Age (in weeks): EDC: Hx Hx Para Hx Section SAB Active Medications Active Medications: Current Medications Generic Name Dose Route Start Last Admin Trade Name Freq PRN Reason Stop Dose Admin Lactated Ringer's 1,000 mls @ 15 mls/hr 06/28/24 08:45 06/28/24 08:55 IV 15 mls/hr .Q48H RICARDO Administration PFSH Medical History Wears glasses Alcohol use History of steroid therapy Arthritis Thyroid disease Injury of back Gastric reflux Former smoker History of stress test Hx of hemorrhoids Personal history of colonic polyps History of tumor Cancer Calcific tendinitis of right hip Herpes labialis GERD (gastroesophageal reflux disease) Hypothyroidism Hypertension Home Medications ?Medication ?Instructions ?Recorded ?Last Taken ?Type glucosamine HCl 500 mg tablet 500 mg PO DAILY 04/12/22 06/27/24 History multivitamin (Multiple Vitamins 1 tab PO DAILY 04/12/22 Unknown History tablet) omeprazole 20 mg capsule,delayed 20 mg PO DAILY 04/12/22 06/27/24 History release sildenafil (pulm.hypertension) 20 20 mg PO DAILY 04/12/22 Unknown History mg tablet valacyclovir 1 gram tablet 1,000 mg PO DAILY 04/12/22 Unknown History levothyroxine 150 mcg capsule 150 mcg PO QDAY 05/02/24 06/27/24 History tamsulosin 0.4 mg capsule 0.4 mg PO QHS 05/02/24 06/27/24 History Lactobacillus acidophilus 10 100 mmu cells PO DAILY 06/26/24 Unknown History billion cell capsule (NewFlora) Allergy/AdvReac Type Severity Reaction Status Date / Time No Known Allergies Allergy Verified 06/28/24 08:49 Surgical History History of cardiac catheterization Hx of left knee surgery Hx of colonoscopy History of right knee surgery Hx of repair of rotator cuff History of hernia repair Social History household members: spouse current occupational status: employed Smoking Status: Never smoker second hand exposure: No alcohol intake: current alcohol intake frequency: holidays/special occasions only details: socially substance use type: does not use what type of physical activity do you participate in: running frequency: 3-4 times per week rachelle/caodaism: Rastafari seatbelt use: always Review of Systems (Anesthesia) ROS Narrative System reviewed and no additional complaints, except as documented.
--- NOTE | 2024-06-28 09:30 | COLBX_PTH ---
PATIENT: DEON MELENDEZ LOC: EN U#:[id number] AGE/SX: 69/M ROOM: RE06/28/[address]: Dr. Temo Wadsworth MD : 1955 BED: DIS: 06/28/2024 SPEC #: [id number] RECD: 06/28/24 12:50 STATUS: GEORGE MANAS #: [id number] MICHAEL: 06/28/24 09:[address]: Temo Wadsworth DEPT: SURGICAL PATHOLOGY RECD BY: Tay Romero ENTERED: 06/28/24 13:36 SP TYPE: COLON BX OTHR DR: Dr. Rony Segura DO Tissues: A - Ascending colon Procedures: Surgery Specimen Level IV HEADER OPERATION: Colonoscopy, biopsy PRE-OP DIAGNOSIS: Encounter for screening for malignant neoplasm of colon TISSUE SUBMITTED: A- Ascending colon polyp biopsy MICROSCOPIC DIAGNOSIS A. Ascending colon, polyp, biopsy: * Tubular adenoma. MICROSCOPIC DESCRIPTION Slides are reviewed. GROSS DESCRIPTION A. Received in formalin in a container labeled with the patient's name, date of , and ascending colon polyp biopsy are 2 hardy-pink fragments of mucosal tissue measuring 0.3 x 0.2 x 0.1 cm and 0.4 x 0.3 x 0.2 cm. Submitted in toto in A1. [facility] 06-28-2024 CPT:71658
--- NOTE | 2024-06-28 09:59 | PCM.HP.STD ---
HPI - General General Date of Admission: 06/28/24 Date of Service: 07/31/24 Chief Complaint: Colonoscopy HPI Narrative DEON MELENDEZ, is a 69 M who presents for colonoscopy. He states his last colonoscopy was about 12 years ago. He did have a couple polyps removed at that time. He denies any recent GI issues or complaints. He states that he does have a brother that had colon polyps but his health is poor overall. [facility] Medical History Wears glasses Alcohol use History of steroid therapy Arthritis Thyroid disease Injury of back Gastric reflux Former smoker History of stress test Hx of hemorrhoids Personal history of colonic polyps History of tumor Cancer Calcific tendinitis of right hip Herpes labialis GERD (gastroesophageal reflux disease) Hypothyroidism Hypertension Home Medications ?Medication ?Instructions ?Recorded ?Last Taken ?Type glucosamine HCl 500 mg tablet 500 mg PO DAILY 04/12/22 06/27/24 History multivitamin (Multiple Vitamins 1 tab PO DAILY 04/12/22 Unknown History tablet) omeprazole 20 mg capsule,delayed 20 mg PO DAILY 04/12/22 06/27/24 History release sildenafil (pulm.hypertension) 20 20 mg PO DAILY 04/12/22 Unknown History mg tablet valacyclovir 1 gram tablet 1,000 mg PO DAILY 04/12/22 Unknown History levothyroxine 150 mcg capsule 150 mcg PO QDAY 05/02/24 06/27/24 History tamsulosin 0.4 mg capsule 0.4 mg PO QHS 05/02/24 06/27/24 History Lactobacillus acidophilus 10 100 mmu cells PO DAILY 06/26/24 Unknown History billion cell capsule (NewFlora) Allergy/AdvReac Type Severity Reaction Status Date / Time No Known Allergies Allergy Verified 06/28/24 08:49 Surgical History History of cardiac catheterization Hx of left knee surgery Hx of colonoscopy History of right knee surgery Hx of repair of rotator cuff History of hernia repair Social History household members: spouse current occupational status: employed Smoking Status: Never smoker second hand exposure: No alcohol intake: current alcohol intake frequency: holidays/special occasions only details: socially substance use type: does not use what type of physical activity do you participate in: running frequency: 3-4 times per week rachelle/anabaptist: Nondenominational seatbelt use: always Vital Signs Vital Signs Vital Signs: 06/28/24 08:51 06/28/24 08:52 06/28/24 09:26 Temperature 97.4 F L 97.4 F L Temperature Source Temporal Pulse Rate 66 66 Respiratory Rate 18 18 Respiratory Pattern Normal Blood Pressure 173/89 H 173/89 H Blood Pressure Mean 117 Blood Pressure Source Monitor Blood Pressure Position Semi-Fowlers Blood Pressure Location Left Arm Pulse Ox 100 100 Oxygen Delivery Method Room Air Weight Weight: 199 lb Body Mass Index (BMI) 28.5 Physical Exam Const alert and oriented x3 Assessment & Plan Assessment/Plan (1) Encounter for screening for malignant neoplasm of colon: PLAN: Plan The patient is a 69-year-old male in need of a surveillance colonoscopy as he has a history of colon polyps. We reviewed the details of the planned procedure including risks benefits and alternatives. He wishes to proceed. This will begin momentarily Charges/Coding Visit Charges Inpatient E&M: 75066 Init Hosp L1
--- NOTE | 2024-06-28 10:36 | OP.CCLET_ITS ---
06/28/2024 Rony Segura [address] [place] [address] Re : Colonoscopy procedure for Albino Romero Dear Dr. Segura This procedure was performed on Friday, June 28, 2024. My impressions and recommendations are as follows: Impressions : - Diverticulosis in the sigmoid colon. - One 3 mm polyp in the ascending colon, removed with a cold biopsy forceps. Resected and retrieved. - Internal hemorrhoids. - The examination was otherwise normal on direct and retroflexion views. Recommendations : - Discharge patient to home (ambulatory). - High fiber diet. - Await pathology results. - Repeat colonoscopy in 5 years for surveillance. - Return to my office PRN. - Continue present medications. My findings are described in the full procedure note, which is enclosed. If I can be of further assistance, please feel free to contact me at . Sincerely, Temo Wadsworth MD 06/28/2024 10:35:56 AM This report has been signed electronically.
--- NOTE | 2024-06-28 10:36 | OP.COLON_ITS ---
Patient Name: Albino Jasso Procedure Date: 06/28/2024 9:50 AM Date of : 1955 Age: 69 Procedure: Colonoscopy Indications: High risk colon cancer surveillance: Personal history of colonic polyps Providers: Temo Wadsworth MD Referring MD: Rony Segura Medicines: Propofol per Anesthesia Patient Profile: Refer to note in patient chart for documentation of history and physical. Last Colonoscopy: more than 10 years ago. Complications: No immediate complications. Estimated blood loss: Minimal. Procedure: Pre-Anesthesia Assessment: - Prior to the procedure, a History and Physical was performed, and patient medications and allergies were reviewed. The patient's tolerance of previous anesthesia was also reviewed. The risks and benefits of the procedure and the sedation options and risks were discussed with the patient. All questions were answered, and informed consent was obtained. Prior Anticoagulants: The patient has taken no anticoagulant or antiplatelet agents. ASA Grade Assessment: II - A patient with mild systemic disease. After reviewing the risks and benefits, the patient was deemed in satisfactory condition to undergo the procedure. After I obtained informed consent, the scope was passed under direct vision. Throughout the procedure, the patient's blood pressure, pulse, and oxygen saturations were monitored continuously. The colonoscope was introduced through the anus and advanced to the cecum, identified by appendiceal orifice and ileocecal valve. The ileocecal valve, appendiceal orifice, and rectum were photographed. The entire colon was well visualized. The colonoscopy was performed without difficulty. The patient tolerated the procedure well. The quality of the bowel preparation was adequate. Moderate Sedation: See the other procedure note for documentation of moderate sedation with intraservice time. Scope In: 10:11:15 AM Scope Withdrawal Time 0 hours 9 minutes 41 seconds Scope Out: 10:29:01 AM Total Procedure Duration Time 0 hours 17 minutes 46 seconds Findings: The perianal and digital rectal examinations were normal. A few small-mouthed diverticula were found in the sigmoid colon. A 3 mm polyp was found in the ascending colon. The polyp was semi-sessile. The polyp was removed with a cold biopsy forceps. Resection and retrieval were complete. Verification of patient identification for the specimen was done by the nurse using the patient's name, date and medical record number. Estimated blood loss was minimal. Internal hemorrhoids were found during endoscopy. The hemorrhoids were moderate. The exam was otherwise without abnormality on direct and retroflexion views. Impression: - Diverticulosis in the sigmoid colon. - One 3 mm polyp in the ascending colon, removed with a cold biopsy forceps. Resected and retrieved. - Internal hemorrhoids. - The examination was otherwise normal on direct and retroflexion views. Recommendation: - Discharge patient to home (ambulatory). - High fiber diet. - Await pathology results. - Repeat colonoscopy in 5 years for surveillance. - Return to my office PRN. - Continue present medications. Procedure Code(s): --- Professional --- 27308, Colonoscopy, flexible; with biopsy, single or multiple Diagnosis Code(s): --- Professional --- Z86.010, Personal history of colonic polyps K64.8, Other hemorrhoids K57.30, Diverticulosis of large intestine without perforation or abscess without bleeding D12.2, Benign neoplasm of ascending colon CPT copyright 2021 [employer]. All rights reserved. The codes documented in this report are preliminary and upon shipping and receiving review may be revised to meet current compliance requirements. Temo Wadsworth MD 06/28/2024 10:35:56 AM This report has been signed electronically. Number of Addenda: 0 Note Initiated On: 06/28/2024 9:50 AM
--- NOTE | 2024-06-28 10:43 | PCM.POST.ANE ---
Anesthesia: Postop Eval I Current Vital Signs Temperature: 97 F Pulse Rate: 56 Blood Pressure: 108/77 Respiratory Rate: 16 Pulse Ox: 94 Oxygen Delivery Method: Room Air Assessment Airway patent: Yes Spontaneous unlabored respirations: Yes Mental status: Asleep nausea: No Vomiting: No Anesthesia Complication: No Fluid Hydration Crystalloid volume administer (ml): 500 Total IV fluid infused: 500 Progress Note Anesthesia document: Postop Eval 1 completed: Yes
--- NOTE | 2024-06-28 10:57 | PCM.POSTANE2 ---
Anesthesia Postop Eval I Sum Postop Eval Completion status Anesthesia document: Postop Eval 1 completed: Yes Anesthesia Postop Eval I Summary Anesthesia Postop Eval I Summary: Anesthesia Postop Eval I: Assessment Summary Airway patent Yes 06/28/24 10:44 [email or web address] Spontaneous unlabored Yes 06/28/24 10:44 [email or web address] respirations Mental status Asleep 06/28/24 10:44 [email or web address] nausea No 06/28/24 10:44 [email or web address] Vomiting No 06/28/24 10:44 [email or web address] Anesthesia Postop Eval I: Fluid Summary Crystalloid volume administer 500 06/28/24 10:44 [email or web address] (ml) Colloids volume administered ( ml) Blood Product volume administered (ml) Total IV fluid infused 500 06/28/24 10:44 [email or web address] Anesthesia Postop Eval I: Summary Notes Anesthesia Complication No 06/28/24 10:44 [email or web address] Anesthesia Complication Comment: Post-operative progress note Anesthesia: Postop Eval II Evaluation Mental status: Awake Pain Level: 0 nausea: No Vomiting: No
== END 2024-06-28 11:30 | disposition home or self-care (01) ==
LOC: EN 08:38 → AC 08:39
PROVIDERS: PCP Family Medicine; Referring Provider Family Medicine; Visit Provider Surgery
PROC: 0DJD8ZZ Inspection of Lower Intestinal Tract, Via Natural or Artificial Opening Endoscopic (ICD-10-PCS; CPT 45378; principal; 2024-06-28 09:25)
DX: Z12.11 Encounter for screening for malignant neoplasm of colon (principal); D12.2 Benign neoplasm of ascending colon; K64.8 Other hemorrhoids; K57.30 Diverticulosis of large intestine without perforation or abscess without bleeding; I10 Essential (primary) hypertension; K21.9 Gastro-esophageal reflux disease without esophagitis; E03.9 Hypothyroidism, unspecified; Z79.890 Hormone replacement therapy; Z79.899 Other long term (current) drug therapy; Z86.0100 Personal history of colon polyps, unspecified
CPT/HCPCS: 45380; 88305; J2405